=== PATIENT | male | born 1960 | race Caucasian/White ===

== ENCOUNTER 2024-06-13 02:19 | Emergency (ER) | payer MEDICAID ==
[~2024-06-13] VITALS: Ht 175.3 cm; Wt 79.5 kg
[2024-06-13 03:03] VITALS: O2SAT 98
[2024-06-13 03:05] LABS: BASOPHILS # (AUTO) 0.1 X10'3 (0-0.2); BASOPHILS % (AUTO) 1.4 % (0-1); EOSINOPHILS # (AUTO) 0.1 X10'3 (0-0.9); HEMATOCRIT 39.6 % (42.0-52.0); HEMOGLOBIN 12.9 g/dl (14.0-17.9); LYMPHOCYTES # (AUTO) 1.7 X10'3 (1.1-4.8); LYMPHOCYTES % (AUTO) 26.4 % (21-51); MEAN CORPUSCULAR HEMOGLOBIN 27.4 PG (27.0-31.0); MEAN CORPUSCULAR HGB CONC 32.6 g/dL (33.0-36.5); MEAN CORPUSCULAR VOLUME 84.2 FL (78-98); MEAN PLATELET VOLUME 7.7 FL (7.4-10.4); MONOCYTES # (AUTO) 0.4 X10'3 (0-0.9); MONOCYTES % (AUTO) 6.4 % (2-12); NEUTROPHILS # (AUTO) 4.2 X10'3 (1.8-7.7); NEUTROPHILS % (AUTO) 63.8 % (42-75); PLATELET COUNT 216 X10'3 (140-440); RED CELL DISTRIBUTION WIDTH 14.9 % (11.5-14.5); WHITE BLOOD COUNT 6.5 X10'3 (4.5-11.0)
[2024-06-13 03:18] LABS: ALANINE AMINOTRANSFERASE 19 U/L (12-78); ALBUMIN 3.8 G/DL (3.4-5.0); ALBUMIN/GLOBULIN RATIO 1.1 (1.1-1.5); ALKALINE PHOSPHATASE 62 IU/L (46-116); ANION GAP 9 (8-16); ASPARTATE AMINO TRANSFERASE 17 U/L (10-37); BILIRUBIN,TOTAL 0.2 MG/DL (0.1-1.0); BLOOD UREA NITROGEN 17 MG/DL (7-18); BUN/CREATININE RATIO 17.3 (10.0-20.0); CALCIUM 8.5 MG/DL (8.5-10.1); CHLORIDE 107 MMOL/L (99-107); CREATININE 0.98 MG/DL (0.60-1.10); GLUCOSE 88 MG/DL (70-104); POTASSIUM 3.3 MMOL/L (3.5-5.1); SODIUM 142 MMOL/L (135-145); TOTAL CARBON DIOXIDE 25.8 MMOL/L (24-32); TOTAL PROTEIN 7.3 G/DL (6.4-8.2); eCRCL 78 ML/MIN; eGFR 78 ML/MIN
[2024-06-13] MEDS ORDERED: METO25TA6 (03:26)
[2024-06-13] MEDS ORDERED: OMEP20CA16 (03:26)
[2024-06-13] MEDS ORDERED: LISI5TAB22 (03:26)
[2024-06-13] MEDS ORDERED: AMIO100T4 PO (03:26)
[2024-06-13] MEDS ORDERED: ATOR10TA70 (03:26)
[2024-06-13] MEDS ORDERED: FURO40TA4 (03:26)
[2024-06-13] MEDS ORDERED: IPRA4AER (03:27)
[2024-06-13] MEDS ORDERED: BUDE10.2 PO (03:27)
[2024-06-13] MEDS ORDERED: NICO-687 TOP (03:27)
[2024-06-13] MEDS ORDERED: APIX5TAB3 (03:27)
[2024-06-13 03:28] LABS: ETHANOL 37 MG/DL (<10); PRO BRAIN NATRIURETIC PEPTIDE 631 PG/ML (0-125)
[2024-06-13 04:30] VITALS: BP 153/94; PULSE 88; RESP 18; TEMP 98
== END 2024-06-13 04:32 | disposition home or self-care (01) ==
LOC: ER 02:20
DX: R07.89 Other chest pain (principal); I48.91 Unspecified atrial fibrillation; Z88.5 Allergy status to narcotic agent; Z88.8 Allergy status to other drugs, medicaments and biological substances
CPT/HCPCS: 36415; 71045; 80053; 80320; 83880; 84484; 85025; 93005; 99285

== ENCOUNTER 2025-04-26 18:36 | Emergency (ER) | payer MEDICAID ==
[~2025-04-26] VITALS: Ht 175.3 cm; Wt 80.0 kg
[~2025-04-26 18:36] MED LIST: AMIO100T4 PO; APIX5TAB3; ATOR10TA70; BUDE10.2 PO; FURO40TA4; IPRA4AER; LISI5TAB22; METO25TA6; NICO-687 TOP; OMEP20CA16
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
--- NOTE | 2025-04-26 19:24 | RADIOLOGY REPORT ---
CHEST TWO VIEWS REASON FOR EXAM: Cough COMPARISON: DI CHEST,SINGLE VIEW on DOS: 06/13/24 TECHNIQUE: PA and lateral views of the chest are obtained. FINDINGS: The cardiomediastinal silhouette is within normal limits for size. There is no focal airspace disease. There is no pleural effusion. No acute osseous abnormality is identified. Surgical anchors project over bilateral humeral heads. IMPRESSION: No radiographic evidence of acute cardiopulmonary process.
[2025-04-26 19:45] LABS: MEAN PLATELET VOLUME 7.0 FL (7.4-10.4); RED CELL DISTRIBUTION WIDTH 15.5 % (11.5-14.5)
[2025-04-26 20:01] LABS: CREATININE 1.03 MG/DL (0.60-1.10); PRO BRAIN NATRIURETIC PEPTIDE 963 PG/ML (0-125); TOTAL CARBON DIOXIDE 29.2 MMOL/L (24-32); eCRCL 73 ML/MIN; eGFR 73 ML/MIN
[2025-04-26] MEDS ORDERED: TIOT4MIS5 (20:58)
[2025-04-26 22:11] LABS: ETHANOL < 10 MG/DL (<10)
[2025-04-27 00:31] LABS: LEUKOCYTE ESTERASE ,URINE NEGATIVE (Neg); NITRITES, URINE NEGATIVE (Neg); OCCULT BLOOD,URINE NEGATIVE (Neg)
[2025-04-27 00:35] LABS: UA COLLECTION TYPE CLN CATCH MIDSTREAM
[2025-04-27 00:37] LABS: URINE AMPHETAMINE SCREEN POSITIVE (Neg); URINE BARBITUATE SCREEN NEGATIVE (Neg); URINE BENZODIAZEPINES SCREEN NEGATIVE (Neg); URINE CANNABINOID SCREEN POSITIVE (Neg); URINE COCAINE SCREEN NEGATIVE (Neg); URINE METHADONE SCREEN NEGATIVE (Neg); URINE OPIATE SCREEN NEGATIVE (Neg); URINE PHENCYCLIDINE SCREEN NEGATIVE (Neg)
[2025-04-27 05:21] VITALS: BP 123/65; PULSE 59; RESP 16; TEMP 98.6; O2SAT 98
== END 2025-04-27 13:30 | disposition home or self-care (01) ==
LOC: ER 18:36
DX: R45.851 Suicidal ideations (principal); F15.10 Other stimulant abuse, uncomplicated; J44.9 Chronic obstructive pulmonary disease, unspecified; I50.9 Heart failure, unspecified; Z88.8 Allergy status to other drugs, medicaments and biological substances; Z88.5 Allergy status to narcotic agent; Z79.899 Other long term (current) drug therapy; Z20.822 Contact with and (suspected) exposure to COVID-19
CPT/HCPCS: 36415; 71046; 80048; 80305; 80320; 81003; 83605; 83880; 84443; 85025; 87040; 87811; 99285